=== PATIENT | male | born 1940 | race Caucasian/White ===

== ENCOUNTER 2022-07-05 04:12 | Day surgery (SDC) | payer OTHER, MEDICARE ==
[2022-07-01 16:51] VITALS: BMI 28.1
[2022-07-05] MEDS ORDERED: VANCOMYCIN 1,000 MG VIAL (RESTRICTED TO ID ONLY) ONE (10:29)
[2022-07-05] MEDS ORDERED: GENTAMICIN SO4 80 MG/2 ML VIAL ONE ×2 (10:30→13:53)
[2022-07-05] MEDS ORDERED: ELECTROLYTE-148 SOLN 1,000 ML IV SCH (11:00)
[2022-07-05] MEDS ORDERED: MIDAZOLAM HCL 2 MG/2 ML SINGLE DOSE VIAL ONE (11:27)
[2022-07-05] MEDS ORDERED: LIDOCAINE HCL/PF 2% SDV 5ML VIAL ONE ×2 (11:27→12:13)
[2022-07-05] MEDS ORDERED: PROPOFOL 20 ML ONE (11:27)
[2022-07-05] MEDS ORDERED: ceFAZolin SODIUM 1 GM VIAL ONE (11:27)
[2022-07-05] MEDS ORDERED: ceFAZolin SODIUM 1 GM VIAL IVPB ONE (11:50)
[2022-07-05] MEDS ORDERED: ONDANSETRON 4 MG/2 ML VIAL ONE (12:27)
[2022-07-05] MEDS ORDERED: DEXAMETHASONE SOD PHOSPHATE 4 MG/1 ML VIAL ONE (12:27)
[2022-07-05] MEDS ORDERED: ONDANSETRON 4 MG/2 ML VIAL IVPUSH PRN (14:21)
[2022-07-05] MEDS ORDERED: oxyCODONE HCL 5 MG TABLET PO PRN (14:21)
[2022-07-05] MEDS ORDERED: ACETAMINOPHEN 1000 MG/100 ML BAG IVPB PRN (14:22)
[2022-07-05] MEDS ORDERED: LACTATED RINGERS SOLUTION 1,000 ML IV SCH (14:30)
[2022-07-05 15:57] VITALS: TEMP 97.5
[2022-07-05 19:04] VITALS: BP 129/57; PULSE 72; RESP 18
== END 2022-07-05 17:05 | disposition home or self-care (01) ==
LOC: JASU-SURG 04:12
PROVIDERS: ATTEND Urology
PROC: 0THD0LZ Insertion of Artificial Sphincter into Urethra, Open Approach (ICD-10-PCS; principal; 2022-07-05 10:45)
DX: N39.498 Other specified urinary incontinence (principal); C61 Malignant neoplasm of prostate
CPT/HCPCS: 53445; C1815; 94760